=== PATIENT | male | born 1945 | race Hispanic/Latino ===

== ENCOUNTER 2017-06-23 14:56 | Emergency (ER) | payer MEDICARE, OTHER ==
[2017-06-23 15:19] VITALS: O2SAT 98
[2017-06-23] MEDS ORDERED: Iohexol 240 (50 ml) PO STA (16:15)
[2017-06-23] MEDS ORDERED: Iohexol 240 (50 ml) ONE (16:55)
[2017-06-23 16:58] LABS: BASO # 0.1 K/uL (0.0-0.2); BASO % 0.7 % (0.0-2.0); EOS # 0.1 K/uL (0.0-0.7); HEMATOCRIT 42.7 % (35.0-51.0); LYMPH # 1.6 K/uL (1.0-4.3); LYMPH % 19.3 % (20.0-40.0); MEAN CELL VOLUME 88.3 fL (80.0-94.0); MEAN CORPUSCULAR HEMOGLOBIN 29.9 pg (27.0-31.0); MEAN CORPUSCULAR HGB CONC 33.9 g/dL (33.0-37.0); MEAN PLATELET VOLUME 7.4 fL (7.2-11.7); MONO # 0.7 K/uL (0.0-0.8); MONO % 8.2 % (0.0-10.0); RED CELL DISTRIBUTION WIDTH 13.5 % (11.5-14.5); WHITE BLOOD COUNT 8.1 K/uL (4.8-10.8)
--- NOTE | 2017-06-23 17:03 | RAD ---
PROCEDURE: CHEST RADIOGRAPH, 1 VIEW HISTORY: abd pain COMPARISON: None available. FINDINGS: LUNGS: Clear. PLEURA: No pneumothorax or pleural fluid seen. CARDIOVASCULAR: Normal. OSSEOUS STRUCTURES: Thoracic spondylosis. Bilateral shoulder arthrosis VISUALIZED UPPER ABDOMEN: Normal. OTHER FINDINGS: None. IMPRESSION: No active cardiopulmonary disease.
[2017-06-23 17:06] LABS: INR 0.9
--- NOTE | 2017-06-23 17:06 | C.PDOC ---
History Of Present Illness Delmer Bañuelos is a 71 year old male, with a past medical history of abdominal hernias with multiple surgical repairs, who presents to the emergency department for a known hernia, however symptoms have been worsening with increased pain, and some dizziness when pain intensifies. Patient's surgeon is Dr. Palacios. He denies any chest pain, shortness of breath, nausea or vomit. PMD: Josemanuel Vela Seen by Provider: 06/23/17 15:55 Chief Complaint (Nursing): Abdominal Pain History Per: Patient History/Exam Limitations: no limitations Onset/Duration Of Symptoms: Days Current Symptoms Are (Timing): Still Present Context: Other (hx of multiple abdominal hernias) Radiation Of Pain To:: None Associated Symptoms: denies: Nausea, Vomiting, Chest Pain, Other (shortness of breath) Past Medical History Reviewed: Historical Data, Nursing Documentation, Vital Signs Vital Signs: Last Vital Signs Temp 98.4 F 06/23/17 15:13 Pulse 88 06/23/17 15:13 Resp 18 06/23/17 15:13 BP 203/94 H 06/23/17 15:13 Pulse Ox 98 06/23/17 20:00 - Medical History PMH: Arthritis Surgical History: Hernia Repair Family History: States: Unknown Family Hx - Social History Hx Tobacco Use: No Hx Alcohol Use: No Hx Substance Use: No - Immunization History Hx Tetanus Toxoid Vaccination: No Hx Influenza Vaccination: No Hx Pneumococcal Vaccination: No Review Of Systems Except As Marked, All Systems Reviewed And Found Negative. Cardiovascular: Negative for: Chest Pain Respiratory: Negative for: Shortness of Breath Gastrointestinal: Positive for: Abdominal Pain (hernia). Negative for: Nausea, Vomiting Physical Exam - Physical Exam Skin: Normal Color, Warm, Dry Head: Atraumatic, Normacephalic Eye(s): bilateral: Normal Inspection, PERRL, EOMI Neck: Normal, Normal ROM, Supple Cardiovascular: Rhythm Regular Respiratory: Normal Breath Sounds, No Accessory Muscle Use Gastrointestinal/Abdominal: Tenderness (hypogastric area with incisional area present), Other (multiple surgical abdominal scars) Extremity: Normal ROM, No Deformity, No Swelling Neurological/Psych: Oriented x3, Normal Speech ED Course And Treatment - Laboratory Results Result Diagrams: 06/23/17 16:54 06/23/17 16:54 ECG Rhythm: Sinus Rhythm, R BBB Interpretation Of ECG: Left ventricular hypertrophy, non specific ST-T wave changes Rate From EC O2 Sat by Pulse Oximetry: 98 Medical Decision Making Medical Decision Making: Initial Impression: abdominal pain Initial Plan: --Abd Pelvis PO & IV contrast [CT] --Ekg --Comp Metabolic Panel --Lipase --Troponin I --CBC w/ differential --PTT --PT --Chest one view [RAD] --Morphine 2 mg IVP --Omnipaque 240 50 ml PO --Protonix 40 mg IVP --Urinalysis --reevaluation 17:01 CXR FINDINGS: LUNGS: Clear. PLEURA: No pneumothorax or pleural fluid seen. CARDIOVASCULAR: Normal. OSSEOUS STRUCTURES: Thoracic spondylosis. Bilateral shoulder arthrosis VISUALIZED UPPER ABDOMEN: Normal. OTHER FINDINGS: None. IMPRESSION: No active cardiopulmonary disease. 19:38 Abd/Pelvis CT FINDINGS: Lower thorax: The heart is mildly enlarged. There is a small hiatal hernia. Lung bases are hyperinflated. There is minimal atelectasis/scarring. ABDOMEN: Liver: There is fatty infiltration of the liver. There is a tiny low attenuation hepatic lesion too small to characterize. Gallbladder and bile ducts: Gallbladder is surgically absent.There is prominence of the common duct. Pancreas: Pancreas is mildly atrophic. Spleen: unremarkable Adrenals: Right adrenal is unremarkable. There is a small left adrenal nodule. Kidneys and ureters: Kidneys and ureters are unremarkable. Stomach and bowel: There are clips adjacent to the gastric fundus. Stomach is incompletely distended. Rotation is normal. There is contrast in much of the small bowel. There is air and fluid throughout the entire small bowel. Terminal ileum is partially distended with fluid and air. Appendix is unremarkable. There is moderate stool in the right colon. Left colon is incompletely distended. There is sigmoid diverticulosis Appendix: See stomach and bowel PELVIS: Bladder: Bladder is partially distended. There is mild bladder wall thickening. There are multiple bladder diverticula. Largest diverticulum is on the left Reproductive: The prostate is enlarged. Seminal vesicles have the expected configuration. ABDOMEN and PELVIS: Intraperitoneal space: There is no free air or free fluid. Bones/joints: Bony structures are osteopenic. There are degenerative changes. 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 There is partial sacralization of L5. Soft tissues: There are small fat containing ventral hernias. Vasculature: There are vascular calcifications. Lymph nodes: There is shotty adenopathy. IMPRESSION: Mild cardiomegaly and atherosclerotic disease; fatty liver; prominent common duct status post cholecystectomy; bladder wall thickening with multiple diverticula possibly due to to enlarged prostate and partial outlet obstruction; diverticulosis without CT findings of diverticulitis Additional findings as described above. 19:55 -Discussed with Dr. Vela who will like to discharge patient home. CT scan results discussed with patient and family. Patient's brother spoke with Dr. Vela and will follow up with him in 2 days. Patient is diagnosed with abdominal pain. Counseling was provided regarding the diagnosis and prognosis. All questions answered and there is agreement with the plan to discharge home with instructions. Patient stable for discharge. Return if symptoms persist or worsen. Disposition Discussed With Dr.: Josemanuel Vela Doctor Will See Patient In The: Office Counseled Patient/Family Regarding: Studies Performed, Diagnosis, Need For Followup - Disposition Referrals: Eliazar Palacios Jr., MD [Staff Provider] - Disposition: HOME/ ROUTINE Disposition Time: 19:58 Condition: STABLE Additional Instructions: follow up with Dr. Vela and Dr. Palacios in 2 days call to make an appointment take medications as prescribed return to hospital if symptoms worsens or progress Instructions: Ventral Hernia (ED), Abdominal Pain (ED) Forms: [facility] ([place]), General Discharge Instructions - Clinical Impression Clinical Impression: Abdominal pain, Hernia - Scribe Statement Mitchel Sharpe Provider Attestation: All medical record entries made by the Scribe were at my direction and personally dictated by me. I have reviewed the chart and agree that the record accurately reflects my personal performance of the history, physical exam, medical decision making, and the department course for this patient. I have also personally directed, reviewed, and agree with the discharge instructions and disposition.
[2017-06-23 17:17] LABS: ALB/GLOB RATIO 1.4 (1.0-2.1); ALKALINE PHOSPHATASE 65 U/L (38-126); ALT/SGPT 40 U/L (21-72); AST/SGOT 36 U/L (17-59); BILIRUBIN,TOTAL 0.9 mg/dL (0.2-1.3); BLOOD UREA NITROGEN 19 mg/dL (9-20); CALCIUM 9.1 mg/dl (8.6-10.4); CARBON DIOXIDE 29 mmol/L (22-30); CHLORIDE 104 mmol/L (98-107); GFR AFRICAN-AMERICAN > 60; GLUCOSE,RANDOM 90 mg/dL (75-110); SODIUM 141 mmol/L (132-148); TOTAL PROTEIN 8.3 g/dL (6.3-8.3)
[2017-06-23] MEDS ORDERED: Iohexol 300 100 ML IJ ONE (18:10)
[2017-06-23 18:18] LABS: RBC URINE 3 /hpf (0-3); URINE BILIRUBIN NEGATIVE (NEGATIVE); URINE BLOOD NEGATIVE (NEGATIVE); URINE COLOR Yellow (YELLOW); URINE GLUCOSE (UA) NORMAL (Normal); URINE KETONE NEGATIVE (NEGATIVE); URINE LEUKOCYTE ESTERASE NEG Leu/uL (Negative); URINE PROTEIN NEGATIVE (NEGATIVE); URINE UROBILINOGEN NORMAL mg/dL (0.2-1.0); WBC URINE 1 /hpf (0-5)
--- NOTE | 2017-06-23 19:38 | CT ---
EXAM: CT Abdomen and Pelvis With Intravenous Contrast EXAM DATE/TIME: 06/23/2017 4:15 PM CLINICAL HISTORY: 71 years old, male; Pain and condition or disease; Hernia; Complications not specified; Ventral; Abdominal pain; Localized; Left; Prior surgery; Surgery date: 6+ months; Additional info: Abd pain TECHNIQUE: Axial computed tomography images of the abdomen and pelvis with intravenous contrast. All CT scans at this facility use one or more dose reduction techniques, viz.: automated exposure control; ma/kV adjustment per patient size (including targeted exams where dose is matched to indication; i.e. head); or iterative reconstruction technique. Coronal and sagittal reformatted images were created and reviewed. CONTRAST: 100 mL of OMNIPAQUE 300 administered intravenously. COMPARISON: There are no prior studies for comparison. FINDINGS: Lower thorax: The heart is mildly enlarged. There is a small hiatal hernia. Lung bases are hyperinflated. There is minimal atelectasis/scarring. ABDOMEN: Liver: There is fatty infiltration of the liver. There is a tiny low attenuation hepatic lesion too small to characterize. Gallbladder and bile ducts: Gallbladder is surgically absent.There is prominence of the common duct. Pancreas: Pancreas is mildly atrophic. Spleen: unremarkable Adrenals: Right adrenal is unremarkable. There is a small left adrenal nodule. Kidneys and ureters: Kidneys and ureters are unremarkable. Stomach and bowel: There are clips adjacent to the gastric fundus. Stomach is incompletely distended. Rotation is normal. There is contrast in much of the small bowel. There is air and fluid throughout the entire small bowel. Terminal ileum is partially distended with fluid and air. Appendix is unremarkable. There is moderate stool in the right colon. Left colon is incompletely distended. There is sigmoid diverticulosis Appendix: See stomach and bowel PELVIS: Bladder: Bladder is partially distended. There is mild bladder wall thickening. There are multiple bladder diverticula. Largest diverticulum is on the left Reproductive: The prostate is enlarged. Seminal vesicles have the expected configuration. ABDOMEN and PELVIS: Intraperitoneal space: There is no free air or free fluid. Bones/joints: Bony structures are osteopenic. There are degenerative changes. 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 There is partial sacralization of L5. Soft tissues: There are small fat containing ventral hernias. Vasculature: There are vascular calcifications. Lymph nodes: There is shotty adenopathy. IMPRESSION: Mild cardiomegaly and atherosclerotic disease; fatty liver; prominent common duct status post cholecystectomy; bladder wall thickening with multiple diverticula possibly due to to enlarged prostate and partial outlet obstruction; diverticulosis without CT findings of diverticulitis Additional findings as described above.
[2017-06-23 20:19] VITALS: BP 164/77; PULSE 71; RESP 20; TEMP 98.8
--- NOTE | 2017-06-25 13:15 | CARD ---
APPROVED REPORT EKG Measurement Heart [id number] MD [id number] <Conclusion> Normal sinus rhythm Right bundle branch block Voltage criteria for left ventricular hypertrophy Abnormal ECG
== END 2017-06-23 20:19 | disposition home or self-care (01) ==
LOC: C.ER 14:56
DX: K46.9 Unspecified abdominal hernia without obstruction or gangrene (principal); R10.30 Lower abdominal pain, unspecified
CPT/HCPCS: 71010; 74177; 80053; 81001; 83690; 84484; 85025; 85610; 85730; 93005; 96374; 96375; 99285; C9113; J2405; Q9966; Q9967